=== PATIENT | female | born 1955 | race Caucasian/White ===

== ENCOUNTER 2023-05-19 00:20 | Emergency (ER) | payer OTHER ==
[~2023-05-19] VITALS: Ht 152.4 cm; Wt 47.2 kg
[2023-05-19 00:33] VITALS: BP_SYST 74; PULSE 77; RESP 16; TEMP 97.4; O2SAT 96
[2023-05-19 01:11] LABS: APPEARANCE,URINE CLOUDY (CLEAR); BILIRUBIN,URINE NEGATIVE (NEGATIVE); BLOOD, URINE 3+ (NEGATIVE); COLOR,URINE YELLOW (YELLOW); LEUKOCYTE ESTERASE ,URINE 3+ (NEGATIVE); NITRITE, URINE POSITIVE (NEGATIVE); PROTEIN,URINE 2+ (NEGATIVE); UGLUCOSE NEGATIVE (NEGATIVE); UROBILINOGEN,URINE 0.2 EU/dL (0.2 - 1)
[2023-05-19 01:13] LABS: BACTERIA,URINE >30 (MANY) /HPF (None Seen); SQUAMOUS EPITHELIAL CELL,UR 0-3 (FEW) /LPF (0-3 (FEW)); WBC,URINE TOO MANY TO COUNT /HPF (0-5)
[2023-05-19 01:14] LABS: MUCUS,URINE 1+ /LPF (None Seen)
[2023-05-19] MEDS ORDERED: CEPH-588 PO (02:20)
[2023-05-19] MEDS: KETOROLAC 30 MG/ML VIAL IM ONE (02:34)
[2023-05-19] MEDS: cephALEXin 500 MG CAP PO ONE (02:36)
[2023-05-19] MEDS: ACETAMINOPHEN EXTRA STRENGTH 500 MG TAB PO ONE (02:36)
[2023-05-19 02:43] VITALS: BP 117/51; PULSE 75; RESP 12; TEMP 98; O2SAT 98
== END 2023-05-19 03:15 | disposition home or self-care (01) ==
LOC: MED 00:20
DX: N39.0 Urinary tract infection, site not specified (principal); Z79.899 Other long term (current) drug therapy
CPT/HCPCS: 81001; 87086; 96372; 99283; J1885

== ENCOUNTER 2023-07-08 20:22 | Emergency (ER) | payer OTHER ==
[~2023-07-08] VITALS: Ht 152.4 cm; Wt 47.2 kg
[~2023-07-08 20:22] MED LIST: CEPH-588 PO
[2023-07-08 20:53] LABS: BASOPHILS # (AUTO) 0.1 K/uL (0.00-0.22); BASOPHILS % (AUTO) 1.2 % (0.0-2.0); EOSINOPHILS # (AUTO) 0.2 K/uL (0-0.4); EOSINOPHILS % (AUTO) 3.3 % (0.0-4.0); HEMOGLOBIN 11.9 g/dL (12.0-16.0); LYMPHOCYTES # (AUTO) 1.8 K/uL (2.5-16.5); MEAN CORPUSCULAR HEMOGLOBIN 27 pg (27-31); MEAN CORPUSCULAR HGB CONC 33 g/dL (33-37); MEAN CORPUSCULAR VOLUME 80.5 fL (80-94); MONOCYTES # (AUTO) 0.7 K/uL (0.8-1.0); MONOCYTES % (AUTO) 11.3 % (1.7-9.3); NEUTROPHILS # (AUTO) 3.4 K/uL (1.8-7.7); NEUTROPHILS % (AUTO) 55.2 % (42.2-75.2); PLATELET COUNT (AUTO) 297 K/uL (140-450); RED BLOOD CELL COUNT(AUTO) 4.47 MIL/uL (4.20-5.40); RED CELL DISTRIBUTION WIDTH 13.1 % (11.6-13.7); WHITE BLOOD COUNT (AUTO) 6.1 K/uL (4.8-10.8)
[2023-07-08 20:55] VITALS: O2SAT 98
[2023-07-08 20:56] LABS: APPEARANCE,URINE CLEAR (CLEAR); BILIRUBIN,URINE NEGATIVE (NEGATIVE); BLOOD, URINE TRACE-I (NEGATIVE); COLOR,URINE YELLOW (YELLOW); LEUKOCYTE ESTERASE ,URINE NEGATIVE (NEGATIVE); NITRITE, URINE NEGATIVE (NEGATIVE); PROTEIN,URINE NEGATIVE (NEGATIVE); UGLUCOSE NEGATIVE (NEGATIVE); UROBILINOGEN,URINE 0.2 EU/dL (0.2 - 1)
[2023-07-08 21:05] VITALS: BP 127/69; PULSE 70; RESP 17; TEMP 98.1; O2SAT 98
[2023-07-08 21:06] LABS: ALANINE AMINOTRANSFERASE 26 U/L (12-78); ALBUMIN 3.8 g/dL (3.4-5.0); ALCOHOL, BLOOD 198 mg/dL (<10); ALKALINE PHOSPHATASE 76 U/L (50-136); ANION GAP 11.2 (8-16); ASPARTATE AMINOTRANSFERASE 27 U/L (15-37); CALCIUM 8.2 mg/dL (8.5-10.1); CARBON DIOXIDE 28.4 mmol/L (21-32); CHLORIDE 94 mmol/L (98-107); CREATININE 0.6 mg/dL (0.6-1.3); GFR ARICAN-AMERICAN 129 mL/min (>90); GFR NON ARICAN-AMERICAN 106 mL/min (>90); GLUCOSE 70 mg/dL (74-106); LIPASE 33 U/L (16-77); POTASSIUM 3.6 mmol/L (3.5-5.1); SODIUM SERUM 130 mmol/L (136-145); TOTAL BILIRUBIN 0.3 mg/dL (0.0-1.0); TOTAL PROTEIN, SERUM 6.7 g/dL (6.4-8.2); UREA NITROGEN, BLOOD 5 mg/dL (7-18)
[2023-07-08 21:12] LABS: ACETAMINOPHEN < 0.5 ug/ml (10-30); SALICYLATE < 2.8 mg/dL (2.8-20.0)
[2023-07-08 21:13] LABS: AMPHETAMINE, URINE NEGATIVE ng/ml (NEG <=1000); BARBITURATE, URINE NEGATIVE ng/ml (NEG <=200); BENZODIAZEPINE, URINE POSITIVE ng/mL (NEG <=200); CANNABINOID, URINE NEGATIVE ng/mL (NEG <=50); COCAINE, URINE NEGATIVE ng/mL (NEG <=300); OPIATE, URINE NEGATIVE ng/mL (NEG <=2000); PHENCYCLIDINE SCREEN,URINE NEGATIVE ng/mL (NEG <=25)
[2023-07-08 21:17] LABS: BACTERIA,URINE None Seen /HPF (None Seen); RBC,URINE 0-5 /HPF (0-5); SQUAMOUS EPITHELIAL CELL,UR None Seen /LPF (0-3 (FEW)); WBC,URINE NONE SEEN /HPF (0-5)
[2023-07-08] MEDS ORDERED: ACETAMINOPHEN EXTRA STRENGTH 500 MG TAB PO ONE (21:50)
[2023-07-08] MEDS ORDERED: diphenhydrAMINE 50 MG/ML VIAL IM ONE (23:45)
[2023-07-08] MEDS ORDERED: HALOPERIDOL IM 5 MG/ML VIAL IM ONE (23:45)
[2023-07-09 01:03] VITALS: O2SAT 98
[2023-07-09 03:09] VITALS: O2SAT 99
[2023-07-09] MEDS ORDERED: diphenhydrAMINE 50 MG/ML VIAL IM ONE (04:50)
[2023-07-09] MEDS ORDERED: LORazepam 2 MG/ML VIAL IM ONE (04:50)
[2023-07-09] MEDS ORDERED: KETOROLAC 60 MG/2 ML VIAL IM ONE (10:35)
[2023-07-09] MEDS ORDERED: KETOROLAC 30 MG/ML VIAL IVP ONE (10:40)
[2023-07-09] MEDS ORDERED: ALPR2TAB1 PO (11:24)
[2023-07-09] MEDS ORDERED: FLUO40CA6 PO (11:24)
[2023-07-09] MEDS ORDERED: SYN.05 PO (11:24)
[2023-07-09] MEDS ORDERED: FLUoxetine 20 MG CAP PO SCH (13:20)
[2023-07-09] MEDS ORDERED: LEVOTHYROXINE 0.05 MG TAB PO SCH (13:20)
[2023-07-09 18:43] VITALS: BP 151/79; PULSE 60; RESP 18; TEMP 98.3; O2SAT 96
== END 2023-07-09 18:43 ==
LOC: MED 20:22
DX: R45.851 Suicidal ideations (principal); F10.129 Alcohol abuse with intoxication, unspecified; F13.10 Sedative, hypnotic or anxiolytic abuse, uncomplicated; F41.9 Anxiety disorder, unspecified; Z20.822 Contact with and (suspected) exposure to COVID-19; F32.9 Major depressive disorder, single episode, unspecified; Z79.2 Long term (current) use of antibiotics; Y90.6 Blood alcohol level of 120-199 mg/100 ml
CPT/HCPCS: 36415; 71045; 80053; 80305; 81001; 83690; 85025; 87426; 93005; 96372; 96374; 99285; G0480; G0482; J1200; J1630; J1885; J2060; Q0092

== ENCOUNTER 2023-12-06 10:28 | Emergency (ER) | payer OTHER, MEDICAID ==
[~2023-12-06] VITALS: Ht 152.4 cm; Wt 46.3 kg
[~2023-12-06 10:28] MED LIST changes: +ALPR2TAB1 PO; +FLUO40CA6 PO; +SYN.05 PO
[2023-12-06 10:39] VITALS: BP_SYST 135; BP_SYST 137; BP_DIAS 67; PULSE 82; PULSE 88; RESP 18; RESP 20; TEMP 98.3; O2SAT 95; O2SAT 99
[2023-12-06] MEDS ORDERED: IBUP-2213 PO (12:30)
[2023-12-06] MEDS ORDERED: ONDA-188 SL (12:30)
[2023-12-06 12:42] VITALS: BP 131/70; PULSE 74; RESP 18; TEMP 97.3; O2SAT 97
== END 2023-12-06 12:42 | disposition home or self-care (01) ==
LOC: MED 10:28
DX: S06.0X0A Concussion without loss of consciousness, initial encounter (principal); Z79.899 Other long term (current) drug therapy; W01.198A Fall on same level from slipping, tripping and stumbling with subsequent striking against other object, initial encounter; Y93.89 Activity, other specified; Y92.89 Other specified places as the place of occurrence of the external cause; Y99.8 Other external cause status
CPT/HCPCS: 70450; 72125; 99284

== ENCOUNTER 2024-01-10 19:53 | Emergency (ER) | payer OTHER, MEDICAID ==
[~2024-01-10] VITALS: Ht 162.6 cm; Wt 63.5 kg
[~2024-01-10 19:53] MED LIST changes: +IBUP-2213 PO; +ONDA-188 SL
[2024-01-10 20:00] VITALS: BP 118/74; PULSE 63; RESP 14; TEMP 97.2
[2024-01-10 23:21] VITALS: BP 122/64; PULSE 86; RESP 14; TEMP 97.7; O2SAT 98
[2024-01-10 23:34] LABS: AMPHETAMINE, URINE NEGATIVE ng/ml (NEG <=1000); BARBITURATE, URINE NEGATIVE ng/ml (NEG <=200); BENZODIAZEPINE, URINE POSITIVE ng/mL (NEG <=200); CANNABINOID, URINE NEGATIVE ng/mL (NEG <=50); COCAINE, URINE NEGATIVE ng/mL (NEG <=300); OPIATE, URINE NEGATIVE ng/mL (NEG <=2000); PHENCYCLIDINE SCREEN,URINE NEGATIVE ng/mL (NEG <=25)
[2024-01-11 01:48] VITALS: O2SAT 98
[2024-01-11 01:54] LABS: EOSINOPHILS # (AUTO) 0.2 K/uL (0-0.4); EOSINOPHILS % (AUTO) 4.8 % (0.0-4.0); HEMOGLOBIN 12.2 g/dL (12.0-16.0); LYMPHOCYTES # (AUTO) 1.8 K/uL (2.5-16.5); LYMPHOCYTES % (AUTO) 38.1 % (20.5-51.1); MEAN CORPUSCULAR HEMOGLOBIN 27 pg (27-31); MEAN CORPUSCULAR HGB CONC 33 g/dL (33-37); MEAN CORPUSCULAR VOLUME 80.6 fL (80-94); MONOCYTES # (AUTO) 0.4 K/uL (0.8-1.0); MONOCYTES % (AUTO) 8.3 % (1.7-9.3); NEUTROPHILS # (AUTO) 2.2 K/uL (1.8-7.7); NEUTROPHILS % (AUTO) 47.8 % (42.2-75.2); PLATELET COUNT (AUTO) 293 K/uL (140-450); RED BLOOD CELL COUNT(AUTO) 4.59 MIL/uL (4.20-5.40); WHITE BLOOD COUNT (AUTO) 4.7 K/uL (4.8-10.8)
[2024-01-11 02:00] VITALS: O2SAT 98
[2024-01-11 02:10] LABS: ANION GAP 10.6 (8-16); CALCIUM 8.3 mg/dL (8.5-10.1); CREATININE 0.5 mg/dL (0.6-1.3); POTASSIUM 3.6 mmol/L (3.5-5.1)
== END 2024-01-11 03:42 | disposition home or self-care (01) ==
LOC: MED 19:53
DX: S51.812A Laceration without foreign body of left forearm, initial encounter (principal); R45.851 Suicidal ideations; F32.9 Major depressive disorder, single episode, unspecified; F41.9 Anxiety disorder, unspecified; Z79.899 Other long term (current) drug therapy; Y08.89XA Assault by other specified means, initial encounter; Y93.89 Activity, other specified; Y92.89 Other specified places as the place of occurrence of the external cause; Y99.8 Other external cause status
CPT/HCPCS: 36415; 80048; 80305; 85025; 99285; G0480; G0482; 84600

== ENCOUNTER 2024-03-11 18:59 | Emergency (ER) | payer OTHER, MEDICAID ==
[~2024-03-11] VITALS: Ht 152.4 cm; Wt 45.8 kg
[2024-03-11 19:19] VITALS: BP 144/82; PULSE 82; RESP 18; TEMP 97.8; O2SAT 97
[2024-03-11 19:34] VITALS: BP 144/82; PULSE 82; RESP 18; TEMP 97.8; O2SAT 97
[2024-03-11] MEDS ORDERED: ALPR2TAB1 PO (19:51)
[2024-03-11] MEDS: LORazepam 1 MG TAB PO ONE (19:58)
== END 2024-03-11 20:01 | disposition home or self-care (01) ==
LOC: MED 18:59
DX: F13.20 Sedative, hypnotic or anxiolytic dependence, uncomplicated (principal); F41.9 Anxiety disorder, unspecified; Z76.0 Encounter for issue of repeat prescription; F32.9 Major depressive disorder, single episode, unspecified; Z79.899 Other long term (current) drug therapy
CPT/HCPCS: 99283